=== PATIENT | male | born 1960 | race Caucasian/White ===

== ENCOUNTER 2025-07-19 15:10 | Emergency (ER) | payer OTHER ==
[~2025-07-19] VITALS: Ht 180.3 cm; Wt 210.0 kg
[2025-07-19 15:16] VITALS: O2SAT 98
[2025-07-19] MEDS: ONDANSETRON HCL 4MG/2ML INJ IV ONE (16:28)
[2025-07-19] MEDS: SODIUM CHLORIDE 0.9% 1,000 ML IV ONE (16:28)
[2025-07-19] MEDS: MECLIZINE 25MG TABLET PO ONE (16:28)
[2025-07-19 17:04] LABS: BASOPHILS % 0.2 % (0.0-2.0); EOSINOPHILS % 0.1 % (0.0-5.0); HEMATOCRIT. 37.2 % (42.0-52.0); HEMOGLOBIN. 12.8 g/dL (14.0-18.0); LYMPHOCYTES % 9.1 % (20.0-50.0); MEAN PLATELET VOLUME 10.0 fl (7.4-10.4); MONOCYTES % 3.3 % (2.0-8.0); NEUTROPHILS % 87.3 % (40.0-76.0); PLATELET 175 x1000/uL (130-400); RED BLOOD CELL COUNT 4.22 mill/uL (4.7-6.1); RED CELL DISTRIBUTION WIDTH 13.0 % (11.6-14.6)
[2025-07-19 17:19] LABS: CREATININE 1.2 mg/dL (0.6-1.3); TROPONIN I HIGH SENSITIVITY < 4 ng/L (3.0-53)
[2025-07-19 17:20] LABS: UREA NITROGEN BLOOD 12 mg/dL (9-23)
[2025-07-19 17:21] LABS: ASPARTATE AMINOTRANSFERASE 21 IU/L (<34); BILIRUBIN DIRECT 0.2 mg/dL (<=3.0); BILIRUBIN TOTAL 0.8 mg/dL (0.1-1.0)
[2025-07-19 17:22] LABS: PROTEIN TOTAL 6.1 g/dL (6.0-8.3)
[2025-07-19 19:42] VITALS: TEMP 36.8
[2025-07-19 20:30] VITALS: BP 132/84; PULSE 55; RESP 16; O2SAT 98
[2025-07-19 20:51] LABS: TROPONIN I HIGH SENSITIVITY < 4 ng/L (3.0-53)
== END 2025-07-19 20:32 | disposition home or self-care (01) ==
LOC: ER 15:10
DX: R42 Dizziness and giddiness (principal); I10 Essential (primary) hypertension; Z88.0 Allergy status to penicillin
CPT/HCPCS: 80076; 80048; 80320; 85025; 84484; 36415; 71045; 70450; 93005; 96360; 99285; J8597; J2405; J7030; G0480